=== PATIENT | male | born 1970 | race Caucasian/White ===

== ENCOUNTER 2024-10-06 09:24 | Day surgery (SDC) | payer OTHER ==
--- NOTE | 2024-10-05 08:57 | P.HPOR ---
History of Present Illness H&P Date: 10/05/24 Chief Complaint: Left wrist pain/hand numbness The patient is a 54-year-old male who presents with progressive left wrist pain and hand numbness for the past 6 months. He notes diffuse burning and numbness. He has weakness. He is having nighttime symptoms. He has tried medications without much relief. He notes progression of his symptoms. Review of Systems Per HPI Past Medical History Past Medical History: Atrial Flutter Additional Past Medical History / Comment(s): took norco for approx. 30 yrs. after back surgery - off norco 2023 and now takes belbuca History of Any Multi-Drug Resistant Organisms: None Reported Past Surgical History: Back Surgery, Hernia Repair Past Anesthesia/Blood Transfusion Reactions: No Reported Reaction Smoking Status: Never smoker - Past Family History Father Family Medical History: Cancer Additional Family Medical History / Comment(s): of pancreatic cancer Mother Family Medical History: Cancer Additional Family Medical History / Comment(s): breast cancer Medications and Allergies Home Medications Medication Instructions Recorded Confirmed Type Aspirin [Adult Low Dose Aspirin EC] 81 mg PO DAILY 10/04/24 10/04/24 History Dextroamphetamine/Amphetamine 10 mg PO TID 10/04/24 10/04/24 History [Adderall] Metoprolol Tartrate [Lopressor] 25 mg PO BID 10/04/24 10/04/24 History buprenorphine HCL [Belbuca] 750 mcg BUCCAL BID 10/04/24 10/04/24 History Allergies Allergy/AdvReac Type Severity Reaction Status Date / Time Penicillins Allergy Rash/Hives Verified 10/04/24 08:49 Physical Examination - Wrist & Hand left Appearance: normal ROM: wrist flexion: normal ROM: wrist extension: normal Tests: Tinel's sign median nerve: positive, carpal tunnel tests: positive Results The patient is a well-developed well-nourished male approximately 6 foot 1, 177 pounds of mesomorphic habitus. HEENT exam is nonfocal, neck is supple. He is nontender about the left shoulder and elbow. He has a positive Tinel's over the left carpal canal. Moderate thenar wasting is noted on the left. Abductor pollicis brevis strength 5 -/5. Carpal tunnel compression test is positive. Previous EMG left upper extremity shows left median motor latency 7.18 Assessment and Plan Assessment: Left carpal tunnel syndromesymptomatic Plan: I talked to the patient at length regarding his condition along with treatment options. At this point he is quite symptomatic despite conservative measures. After a thorough discussion he opts to proceed with surgery. We will plan to proceed with left carpal tunnel release. We will plan on utilizing local anesthetic and IV sedation as an outpatient procedure. Risks and benefits were discussed at length in layman's terms.
[~2024-10-06 09:24] MED LIST: HYDROmorphone 0.5 MG/0.5 ML SYRINGE IVP PRN; MIDAZOLAM 2 MG/2 ML VIAL IV PRN; SCOPOLAMINE 1 MG/72 HR PATCH TRANSDERM ONE
[2024-10-06] MEDS: DEXAMETHASONE SOD PHOSPHATE 4 MG/ML 1 ML VIAL IV ONE (10:18)
[2024-10-06] MEDS: ONDANSETRON 4 MG/2 ML VIAL IVP ONE (10:18)
[2024-10-06] MEDS: LACTATED RINGERS 1,000 ML IV SCH (10:18)
[2024-10-06] MEDS: IV FLUID CONTINUATION 1,000 ML IV ONE (10:40)
[2024-10-06 10:42] VITALS: TEMP 97
[2024-10-06] MEDS ORDERED: MIDAZOLAM 2 MG/2 ML VIAL ONE (12:01)
[2024-10-06] MEDS ORDERED: PROPOFOL 10 MG/ML 20 ML VIAL IV ONE (12:01)
[2024-10-06] MEDS: BUPIVACAINE (PF) 0.25% 30 ML VIAL SQ ONE ×2 (12:24→12:35)
--- NOTE | 2024-10-06 12:41 | P.OP ---
Date of Procedure: 10/06/24 Preoperative Diagnosis: Left carpal tunnel syndromesymptomatic Postoperative Diagnosis: Same Procedure(s) Performed: Left carpal tunnel release Anesthesia: MAC, local Surgeon: Kamar Mcdowell Estimated Blood Loss (ml): 1 Pathology: none sent Condition: stable Disposition: PACU Indications for Procedure: The patient is a 54-year-old male who presents with progressive left hand pain and numbness secondary to carpal tunnel syndrome despite conservative measures. A discussion of the risks and benefits of operative intervention versus continued conservative measures was made with the patient. He opted to proceed with surgery. Operative risks include infection, neurovascular G, development of blood clots, possible incomplete resolution of symptoms, possible recurrence of symptoms and need for subsequent procedures was discussed. Informed consent was obtained. Operative Findings: As below Description of Procedure: The patient was brought to the operating room, and after induction of IV sedation the left upper extremity was prepped and draped in normal fashion. The proposed incision site was outlined skin marker in line with the radial aspect the fourth ray extending from the volar wrist crease distally 2-1/2 cm. One quarter percent plain Marcaine was injected into the proposed incision site. 9 mL was utilized. The tourniquet was inflated to 250 mmHg. The skin incision was then made. The skin was incised sharply. Subcutaneous tissues were divided sharply the superficial palmar fascia was identified and split in line with the skin incision. The transverse carpal ligament was identified and transected under direct visualization distally to level the palmar fat pad. Proximal was taken level of the volar wrist crease. A plane above and below the transverse carpal ligament was then bluntly developed with tenotomies. The confluence of the distal forearm fascia and the transverse carpal ligament was then transected under direct visualization proximally with the tines pointed in the ulnar direct ion. I felt this was adequate proximal release. Neural lysis was not performed. The wound was irrigated with normal saline. Electrocautery was used for hemostasis. The skin was reapproximated with simple 3-0 nylon sutures. A sterile dressing was applied. The tourniquet was deflated with less than 15 minutes total tourniquet time. Patient was awoken from sedation and transferred to the recovery room in good condition. Blood loss was estimated 1 mL. No complications were incurred. Sponge and needle counts were correct at the end the case.
[2024-10-06 13:13] VITALS: BP 123/82; PULSE 85; RESP 18
== END 2024-10-06 13:32 | disposition home or self-care (01) ==
LOC: OR 09:24
PROVIDERS: ATTEND Orthopaedic Surgery
DX: G56.02 Carpal tunnel syndrome, left upper limb (principal); F90.9 Attention-deficit hyperactivity disorder, unspecified type; I48.92 Unspecified atrial flutter; Z98.890 Other specified postprocedural states; Z80.3 Family history of malignant neoplasm of breast; Z88.0 Allergy status to penicillin; Z79.82 Long term (current) use of aspirin; Z79.899 Other long term (current) drug therapy
CPT/HCPCS: 64721; J2250; J1100; J0690; J2405; J2704; J0665